=== PATIENT | male | born 1960 | race Caucasian/White ===

== ENCOUNTER 2023-02-28 01:15 | Day surgery (SDC) | payer BC, SELFPAY ==
[2023-02-18 10:24] VITALS: BMI 31.0
--- NOTE | 2023-02-27 15:27 | PM.HPGS ---
History of Present Illness History of Present Illness Consent: Risks, benefits, and alternatives have been discussed and questions answered. Patient agrees to proceed with procedure. Chief complaint: hx colon ca, hx colon polyps Narrative: Maxim Schumacher is a 62 year old male With history of colon cancer which has been resected. He also has a history of polyps. Five years ago he had 3 polyps removed. Review of Systems Review of Systems: All systems reviewed & are unremarkable except as noted in HPI and below PMFSH Past Medical History Medical History Adhesive capsulitis of right shoulder Degenerative arthritis of right shoulder region Right shoulder pain Family History Family History Father Hypertension Father Hypertension Patient's father is in good health Mother Patient's mother is in good health Sibling Patient's sister is in good health Patient's brother is in good health Other Family history of gout Family history of malignant neoplasm Social History Social History Smoking status: Never smoker Alcohol intake: never Substance use: never Substance use type: does not use Living arrangements: with family Spiritual care concerns: No Meds Home Medications and Allergies Home Medications Medication Instructions Recorded Confirmed Type levothyroxine 50 mcg tablet 50 mcg PO DAILY 02/18/23 02/28/23 History telmisartan 80 1 tablet PO DAILY 02/18/23 02/28/23 History mg-hydrochlorothiazide 25 mg tablet Allergies Allergy/AdvReac Type Severity Reaction Status Date / Time Penicillins Allergy Unknown Unknown Verified 02/28/23 07:52 Exam Const: General: alert Orientation/consciousness: patient oriented x3 Resp: Auscultation: clear to auscultation bilaterally Cardio: Rhythm: regular rhythm GI: GI Palp: Yes Soft to palpation and No Tenderness to palpation present (GI) Neuro: General: patient oriented x3 Assessment and Plan Assessment and plan (1) Colon cancer screening: Code(s): Z12.11 - Encounter for screening for malignant neoplasm of colon Status: Acute Assessment and Plan: Colonoscopy with possible biopsy or polypectomy or cautery or injection of substances. (2) History of colon cancer: Code(s): Z85.038 - Personal history of other malignant neoplasm of large intestine Status: Acute
[2023-02-28] VITALS (9 sets, daily range): BP systolic 132–175; BP diastolic 90–126; PULSE 62–72; RESP 13–20; TEMP 36.2; O2SAT 95–97; BMI 29.9
[2023-02-28] MEDS: LACTATED RINGERS 1,000 ML 150 ML IV CONT (08:10)
--- NOTE | 2023-02-28 08:44 | P.PNAN_ITS ---
Anes - Initial Pre Proc Eval Procedure: Operation Date: 02/28/23 09:00 Proposed Procedures p Colonoscopy - Pawel Horn MD Date/Time: 02/28/23 08:44 Surgeon: Pawel Horn MD Pre Op Diagnosis: hx colon ca, hx colon polyps Patient Data Age: 62 Gender: M Height: 1.73 m Weight: 89.4 kg Last Vital Signs Temp 36.2 C L 02/28/23 07:53 Pulse 71 02/28/23 07:53 Resp 20 02/28/23 07:53 BP 168/112 H 02/28/23 08:16 Pulse Ox 96 02/28/23 07:53 O2 Del Method Room Air 02/28/23 07:53 Allergies Allergy/AdvReac Type Severity Reaction Status Date / Time Penicillins Allergy Unknown Unknown Verified 02/28/23 07:52 Home Medications Medication Instructions Recorded Confirmed Type levothyroxine 50 mcg tablet 50 mcg PO DAILY 02/18/23 02/28/23 History telmisartan 80 1 tablet PO DAILY 02/18/23 02/28/23 History mg-hydrochlorothiazide 25 mg tablet Patient hx anesthesia problems: none Family hx anesthesia problems: none Results Review: All pre-operative results and documents have been reviewed as part of the pre- operative evaluation. [facility] Past Medical History Medical History Adhesive capsulitis of right shoulder Degenerative arthritis of right shoulder region Right shoulder pain Family History Family History Father Hypertension Father Hypertension Patient's father is in good health Mother Patient's mother is in good health Sibling Patient's sister is in good health Patient's brother is in good health Other Family history of gout Family history of malignant neoplasm Social History Social History Smoking status: Never smoker Alcohol intake: never Substance use: never Substance use type: does not use Living arrangements: with family Spiritual care concerns: No Anes - Eval Final PreProcedure Day of Procedure 02/28/23 08:44 Patient weight: obese Heart: regular rate and rhythm Lungs: clear to auscultation Airway: Mallampati scale class II Neurological: alert and oriented Last oral intake: >/= 8 hours ASA classification: III Emergent: no Anesthetic plan: proceed Anesthesia type and monitoring: general GIVS and standard monitoring Results Review: All pre-operative results and documents have been reviewed as part of the pre- operative evaluation. Informed Consent: The patient's anesthetic plan and its attendant risks and benefits were discussed with the patient/family/POA. Questions were solicited and answers provided to the satisfaction of the patient/family/POA.
--- NOTE | 2023-02-28 09:34 | SUR.PHASEII ---
Per Dr. Ogden patient can go home to take home meds if diastolic pressure is less less than or equal to 110.
--- NOTE | 2023-02-28 09:40 | SUR.PHASEII ---
Per Dr. Ogden give 5mg of hydralazine IV for bp of 173/117.
[2023-02-28] MEDS: hydrALAZINE HCL 20 MG/ML VIAL 5 MG IV PUSH (09:47)
--- NOTE | 2023-02-28 10:05 | SUR.PHASEII ---
per Dr. Ogden, patient can be discharged with bp of 175/108. Encourage patient to take bp med when he gets home as well.
== END 2023-02-28 10:18 | disposition home or self-care (01) ==
PROVIDERS: PCP Family Medicine; Visit Provider Internal Medicine Gastroenterology
PROC: 0DJD8ZZ Inspection of Lower Intestinal Tract, Via Natural or Artificial Opening Endoscopic (ICD-10-PCS; CPT 45378; principal; 2023-02-28 09:00)
DX: Z12.11 Encounter for screening for malignant neoplasm of colon (principal); D12.2 Benign neoplasm of ascending colon; K57.30 Diverticulosis of large intestine without perforation or abscess without bleeding; Z85.038 Personal history of other malignant neoplasm of large intestine; Z98.0 Intestinal bypass and anastomosis status; Z90.49 Acquired absence of other specified parts of digestive tract; Z86.010 Personal history of colon polyps; E66.9 Obesity, unspecified; Z68.30 Body mass index [BMI] 30.0-30.9, adult
CPT/HCPCS: 45381; 45385; 88305; J0360; J2704; J7120

== ENCOUNTER 2023-04-11 09:47 | Outpatient (CLI) | payer BC, SELFPAY ==
--- NOTE | 2023-04-11 10:47 | ECG_ITS ---
Measurements Intervals [place] Rate: 62 P: 37 WA: 179 QRS: -12 QRSD: 122 T: 67 QT: 406 QTc: 413 Interpretive Statements SINUS RHYTHM NONSPECIFIC T-WAVE ABNORMALITY BORDERLINE ECG NO PREVIOUS ECG AVAILABLE FOR COMPARISON Electronically Signed On 04-11-2023 15:11:38 CDT by Marko Christianson M.D.
[2023-04-11 11:14] LABS: Hematocrit 41.5 % (42.0-52.0); Hemoglobin 13.2 g/dL (14.0-18.0)
[2023-04-11 11:19] LABS: Anion Gap 7 mmol/L (8-16); Blood Urea Nitrogen 22 mg/dL (9-20); Calcium 9.3 mg/dL (8.4-10.2); Carbon Dioxide 29 mmol/L (22-30); Chloride 103 mmol/L (98-107); Estimated Glomerular Filt Rate 48; Glucose 93 mg/dL (65-110); Potassium 4.2 mmol/L (3.4-5.0); Sodium 139 mmol/L (137-145)
== END 2023-04-11 09:48 | disposition home or self-care (01) ==
LOC: ANHSURGERY 09:52
PROVIDERS: Anesthesiology; PCP Family Medicine; Visit Provider Surgery
DX: K63.89 Other specified diseases of intestine (principal); I10 Essential (primary) hypertension; R94.31 Abnormal electrocardiogram [ECG] [EKG]
CPT/HCPCS: 36415; 80048; 85014; 85018; 93005

== ENCOUNTER 2023-04-25 12:33 | Inpatient (IN) | payer BC, SELFPAY ==
[2023-04-11 10:22] VITALS: BMI 29.0
[2023-04-11 10:23] VITALS: BP 154/108; PULSE 71; RESP 18; TEMP 36.6; O2SAT 99
--- NOTE | 2023-04-11 10:25 | PC.NURSE ---
Report to the Outpatient Waiting Room, entrance under the green pavilion located off [facility], at time __0600 on date _04/25/23 . Planned Procedure Time: __0730 . Time changes happen often and if your time is changed the preop area will call you the afternoon before. - You and your visitor will be asked to self-screen and do not enter if you have any COVID symptoms. - A mask is optional within the hospital at this time. Patients may have clear liquids (water, carbonated beverages, clear teas, apple juice) until 3 hours prior to surgery with a maximum of 20 ounces. - No food from midnight until time of surgery - Infants may have breast milk until 4 hours before surgery, formula 6 hours prior to surgery. - Children will be allowed to drink immediately following surgery. If applicable, please bring a bottle or sippy cup to assist with drinking. Juice, water, soda, and popsicles are readily available. For infants on formula, please bring formula the day of surgery. Pacifiers are allowed. Take the following medications with a SIP of water the morning of surgery: ___LEVOTHYROXINE DO NOT STOP ANY OF YOUR OTHER PRESCRIPTION MEDICATIONS PRIOR TO SURGERY ?EXCEPT THE FOLLOWING Medications to discontinue per physician ALL VITAMINS AND SUPPLEMENTS 3 DAYS PRE OP.LAST DOSE 04/21/23 HIBICLENS SHOWER DAY BEFORE SURGERY AND MORNING OF SURGERY BOWEL PREP PER DR SMITH ENSURE BUNDLE PACK PER DR SMITH Please no make-up, nail danish, hairspray, perfume, deodorant, or body powder the day of surgery. No jewelry (including any body piercings) or valuables the day of surgery, leave them at home. Please take a shower or bath the night before, or the morning of, surgery with an antibacterial soap. Wear comfortable, loose fitting clothing. Children are encouraged to wear pajamas. - Jewelry must be removed prior to entering the operating room. Rings and piercings that are not removed may be cut off. - The hospital will not accept responsibility for valuables. - Please leave all valuables, including medications, at home the day of surgery. If you are going home after surgery, a licensed canal driver must drive you home. - NO public transportation without another adult if you receive anesthesia. - We recommend that an adult stay with you for 24 hours following discharge. - We also recommend that you do not drive, make important decision, drink alcoholic beverages, or take any drugs that were not prescribed by your health care provider for at least 24 hours after your discharge time. For Pediatric surgeries, we recommend two adults accompany the child home. Follow any additional instructions given to you from your surgeon. If you or anyone in your household have experienced Covid symptoms in the past week, please notify your surgeon or the nurse liaison at the phone number below for possible testing. VERBAL AND WRITTEN instructions given to _PATIENT AND WESLEY and asked if any additional questions and then verbalized understanding. Patient advised to call surgeon office or pre surgery nurse liaison [phone] if any additional questions.
--- NOTE | 2023-04-24 14:53 | WPDANESEPPF ---
Anes - Initial Pre Proc Eval Procedure: Operation Date: 04/25/23 07:30 Proposed Procedures p Hand Assisted Laparoscopic Right Hemicolectomy - Wilman Raygoza MD Date/Time: 04/24/23 14:53 Surgeon: Wilman Raygoza MD Pre Op Diagnosis: hx colon ca,colon polyps with dysplasia, sigmod co Patient Data Age: 62 Gender: M Height: 1.78 m Weight: 91.6 kg Last Vital Signs Temp 97.8 F 04/11/23 10: Pulse 71 04/11/23 10:23 Resp 18 04/11/23 10:23 BP 154/108 H 04/11/23 10:23 Pulse Ox 99 04/11/23 10:23 O2 Del Method Room Air 04/11/23 10:23 Allergies Allergy/AdvReac Type Severity Reaction Status Date / Time Penicillins Allergy Unknown Rash Verified 04/25/23 06:19 Home Medications Medication Instructions Recorded Confirmed Type levothyroxine 50 mcg tablet 50 mcg PO DAILY 02/18/23 04/25/23 History telmisartan 80 1 tablet PO QNOON 02/18/23 04/25/23 History mg-hydrochlorothiazide 25 mg tablet ciprofloxacin HCl 500 mg tablet 500 mg PO .COMPLEX #1 tablet 03/21/23 04/11/23 Rx metronidazole 500 mg tablet 500 mg PO .COMPLEX #3 tabs 03/21/23 04/11/23 Rx milk thistle 200 mg capsule 200 mg PO DAILY 04/11/23 04/25/23 History Patient hx anesthesia problems: none Family hx anesthesia problems: none Results Review: All pre-operative results and documents have been reviewed as part of the pre-operative evaluation. [facility] Past Medical History Medical History (Updated 03/20/23 @ 15:19 by Heather Negro CMA) Adhesive capsulitis of right shoulder Degenerative arthritis of right shoulder region GERD (gastroesophageal reflux disease) History of colon cancer Hypertension Hypothyroid Right shoulder pain Surgical History Surgical History History of colon surgery Hx of neck surgery Family History Family History Father Hypertension Father Hypertension Patient's father is in good health Mother Patient's mother is in good health Sibling Patient's sister is in good health Patient's brother is in good health Other Family history of gout Family history of malignant neoplasm Social History Social History Smoking status: Never smoker Alcohol intake: never Substance use: never Substance use type: does not use Living arrangements: with family Occupation/Education: occupation 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 Informed Consent: The patient's anesthetic plan and its attendant risks and benefits were discussed with the patient/family/POA. Questions were solicited and answers provided to the satisfaction of the patient/family/POA.
[2023-04-25] VITALS (13 sets, daily range): BP systolic 115–161; BP diastolic 64–103; PULSE 55–79; RESP 9–28; TEMP 36.4–37.8; O2SAT 92–100
[2023-04-25] MEDS: LACTATED RINGERS 1,000 ML 30 ML IV CONT ×2 (06:30→11:10)
[2023-04-25] MEDS: ACETAMINOPHEN 500 MG TABLET 1000 MG PO (07:02)
[2023-04-25] MEDS: ALVIMOPAN 12 MG CAPSULE PO (07:03)
[2023-04-25] MEDS: KETOROLAC 15 MG/ML VIAL (*BKC) IV PUSH ×2 (07:06→10:31)
--- NOTE | 2023-04-25 07:22 | PM.IMHP ---
H&P: [facility] History of Present Illness Date/Time: 04/25/23 07:22 Chief Complaint: Right colon polyp with dysplasia Narrative: General Laparoscopic Surgical [address] [place] [address] Wilman Raygoza M.D. General Surgery Office Visit Re [facility] HPI Comments Details: Maxim is a 62 y/o male who presents to the office accompanied by his at the request of Dr. Horn for evaluation of a colon mass. Patient recent underwent colonoscopy with Dr. Horn on 02/28/23. 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 Patient has a past history of colon cancer as well as a previous colon resection in 2011. Patient denies any abdominal pain, change in bowel habits, or bleeding. Review of Systems Review of Systems: The remainder of the review of systems to include constitutional, HEENT, cardiovascular, respiratory, GI, , integumentary, musculoskeletal, endocrine, immunologic, hematologic, psychiatric, and neurologic are all negative except for which is mentioned above in the HPI. [facility] Past Medical History Medical History Adhesive capsulitis of right shoulder Degenerative arthritis of right shoulder region GERD (gastroesophageal reflux disease) History of colon cancer Hypertension Hypothyroid Right shoulder pain Surgical History Surgical History History of colon surgery Hx of neck surgery Family History Family History Father Hypertension Father Hypertension Patient's father is in good health Mother Patient's mother is in good health Sibling Patient's sister is in good health Patient's brother is in good health Other Family history of gout Family history of malignant neoplasm Social History Social History Smoking status: Never smoker Alcohol intake: never Substance use: never Substance use type: does not use Living arrangements: with family Occupation/Education: occupation 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[employer] care concerns: No Meds Home Medications and Allergies Home Medications Medication Instructions Recorded Confirmed Type levothyroxine 50 mcg tablet 50 mcg PO DAILY 02/18/23 04/25/23 History telmisartan 80 1 tablet PO QNOON 02/18/23 04/25/23 History mg-hydrochlorothiazide 25 mg tablet ciprofloxacin HCl 500 mg tablet 500 mg PO .COMPLEX #1 tablet 03/21/23 04/11/23 Rx metronidazole 500 mg tablet 500 mg PO .COMPLEX #3 tabs 03/21/23 04/11/23 Rx milk thistle 200 mg capsule 200 mg PO DAILY 04/11/23 04/25/23 History Allergies Allergy/AdvReac Type Severity Reaction Status Date / Time Penicillins Allergy Unknown Rash Verified 04/25/23 06:19 Exam Const: General: comfortable and no acute distress HENMT: Ears: TM's normal bilaterally Face/Nose/Sinus: Normal nares present Mouth: Yes moist mucous membranes Eyes: General: appearance normal, both eyes and all related structures Sclera: sclerae normal Pupils: Equal, round and reactive pupils present Neck: Neck: supple and no JVD Resp: Effort & Inspection: normal respiratory effort Auscultation: clear to auscultation bilaterally Cardio: Rate: regular rate Rhythm: regular rhythm GI: GI Palp: Yes Soft to palpation, No Firmness to palpation present (GI), No Tenderness to palpation present (GI), No Guarding due to palpation present (GI) and No Hernia present Other: Well healed midline scar, no incisional hernias Skin: General skin exam: normal color and no rashes or lesions noted Neuro: General: gait normal Speech: normal speech Motor exam (neuro): 5/5 motor strength present throughout Sensory Exam: normal sensation Extrem: General: normal to inspection Psych: Mental Status:
--- NOTE | 2023-04-25 07:25 | WPDHPUPDATE1 ---
History and Physical Update Update Date/Time: 04/25/23 07:25 History and Physical has been reviewed, including an updated exam of the patient. There are NO changes in the patient's condition. Risks, benefits, and alternatives have been discussed and questions answered. Patient agrees to proceed with procedure.
[2023-04-25] MEDS: ceFAZolin 2 GM/D5W 50 ML 2 GM/50 ML BAG IVPB (07:34)
[2023-04-25] MEDS: LIDO 1%/EPINEPHRINE 1:100,000 50 ML VIAL 30 ML INFILTRATE (07:46)
[2023-04-25] MEDS: metroNIDAZOLE 500 MG/ISO 100ML 500 MG/100 ML BAG 100 MG IVPB (07:52)
[2023-04-25] MEDS: ceFAZolin SODIUM 1 GM VIAL IV PUSH (10:35)
--- NOTE | 2023-04-25 12:21 | ADMGEN ---
This patient, Maxim Schumacher, was admitted to -. Patient/family oriented to hospital policies and general routines including ID bracelet, bed and alarms, visiting hours, pain management, procedures, bathroom and other care routines, personal items, smoking policy, room service/diet, and visiting hours. Information on how to activate the Rapid Response Team has been discussed. Patient/Family are encouraged to report perceived risks to care and to ask questions if they do not understand what they are told or what they should do.
--- NOTE | 2023-04-25 13:13 | W.PM.PROC2 ---
Procedure Note - Detailed Date of Procedure 04/25/23 Pre-op Diagnosis hx colon ca,colon polyps with dysplasia, sigmod co Post-op Diagnosis Same Procedure Performed Hand assisted laparoscopic right hemicolectomy with stapled [id number] ileocolic anastomosis Surgeon Wilman Raygoza MD Dispatcher Chief [employer]az MAI Anesthesia General Indications Patient is a 62-year-old gentleman who in 2012 had a low anterior resection for a colorectal cancer. He recently had a colonoscopy and was found to have a right colonic polyp which was biopsied and showed high-grade dysplasia. Presents now for a hand assisted laparoscopic right hemicolectomy to resect the pre cancerous polyp. Findings The polyp was located in the proximal ascending colon just distal to the cecum. It was well marked with the Carlota ink tattoo that was placed at the patient's colonoscopy. There were some adhesions of omentum and small bowel to the anterior abdominal wall which were carefully taken down with sharp scissor electrocautery dissection. A small periumbilical midline incisional hernia was noted with some incarcerated omentum. Description of Procedure After informed consent was obtained patient brought to the operating room was placed supine position and general endotracheal anesthesia was administered. A Hickey catheter was placed decompress the bladder and a nasogastric tube placed to decompress the stomach. The abdomen was then prepped and draped usual sterile fashion. A time-out was then performed correctly identifying the patient as well as procedure to be performed. He was given Ancef for perioperative IV antibiotics. I 1st started by making a small stab incision left upper quadrant and then utilizing a 5mm Optiview port into the abdomen with a direct optical insertion. Once inside the abdomen insufflated to adequate pneumoperitoneum of 15mmHg of CO2. Upon examining the abdomen there were 2 loops of small bowel which were adherent to the anterior abdominal wall just inferior to the umbilicus. There were also adhesions of the omentum to the epigastric abdominal wall. Two small incisional hernias were noted in the midline scar in the periumbilical region. Omentum was incarcerated within these small hernia defects each measuring about 1 to 2 cm diameter. I then placed additional trocar ports of left lateral abdominal wall to include 2 more 5mm trocar ports and a 12mm trocar port all under direct visualization. Working through these ports I then very carefully performed adhesiolysis of the omentum off of the anterior abdominal wall as well as the adherent small bowel off of the anterior abdominal wall. This is down with a combination of LigaSure and sharp scissor laparoscopic dissection. No injury to the bowel was seen with takedown of these adhesions. These lysis took about 30minutes. I then proceeded to place a GelPort for hand access to had all the adhesions down. An 8cm supraumbilical incision the midline and dissection was carried down through the subcutaneous tissue electrocautery. This is centered on 1 of the small incisional hernias and I entered through the hernia sac. I then opened the fascia to match the skin incision and then placed the GelPort for hand access. I then placed my hand into the abdomen and then utilizing the remaining trocar port sites and the LigaSure energy device proceeded to mobilize the right colon. I 1st started by reflecting the omentum to the upper portion of the abdomen and pushing the small bowel to the pelvis and to the left side of the abdomen. The hepatocolic ligament was then divided utilizing the LigaSure device allowing me to reflect the hepatic flexure of the colon towards the midline. The duodenum was identified and preserved without injury. I continued my dissection proximally on the right ascending colon dividing the right lateral peritoneal attachments to the ascending colon with the LigaSure device. Once I reached the cecum and
[2023-04-25] MEDS: ceFAZolin 1 GM/NS 50 ML 1 GM/50 ML BAG IVPB ×2 (13:24→23:01)
[2023-04-25] MEDS: TELMISARTAN 40 MG TABLET 80 MG PO (13:25)
[2023-04-25] MEDS: hydroCHLOROthiazide 25 MG TABLET PO (13:25)
[2023-04-25] MEDS: DEXTROSE 5%/LACTATED RINGERS 1,000 ML 100 ML IV CONT (13:25)
[2023-04-25 13:47] LABS: Basophils Percent Auto 0.1 % (0.2-1.2); Eosinophils Percent Auto 0.1 % (0-4.4); Hematocrit 37.8 % (42.0-52.0); Hemoglobin 12.1 g/dL (14.0-18.0); Immature Granulocyte Absolute 0.08 K/mm3 (0.00-0.031); Immature Granulocyte Percent A 0.5 % (0-0.5); Lymphocytes Absolute Auto 0.63 K/mm3 (0.9-3.2); Lymphocytes Percent Auto 3.8 % (18.3-44.2); Mean Corpuscular Hemoglobin 30.5 pg (26-34); Mean Corpuscular Volume 95.2 fl (80-100); Mean Platelet Volume 9.7 fl (7.4-10.4); Monocytes Absolute Auto 0.4 K/mm3 (0.1-0.6); Monocytes Percent Auto 2.6 % (2.6-8.5); Neutrophils Absolute Auto 15.5 K/mm3 (1.3-6.7); Neutrophils Percent Auto 92.9 % (45.5-73.1); Platelet Count Result 382 k/mm3 (150-375); Red Blood Count 3.97 M/mm3 (4.6-6.20); Red Cell Distribution Width 13.9 % (11.5-14.5); White Blood Count 16.7 K/mm3 (4.5-10.0)
[2023-04-25] MEDS: ENOXAPARIN 40 MG/0.4 ML SYRINGE SUB-Q (14:33)
[2023-04-26 01:00] VITALS: TEMP 36.9
[2023-04-26 04:00] VITALS: BP 137/81; PULSE 62; RESP 16; TEMP 37.6; O2SAT 96
[2023-04-26] MEDS: LEVOTHYROXINE SODIUM 50 MCG TABLET PO (05:40)
[2023-04-26 07:46] VITALS: BP 130/83; PULSE 56; RESP 18; TEMP 37.1; O2SAT 100
[2023-04-26] MEDS: ENOXAPARIN 40 MG/0.4 ML SYRINGE SUB-Q (08:06)
[2023-04-26 08:12] LABS: Hematocrit 32.8 % (42.0-52.0); Hemoglobin 10.8 g/dL (14.0-18.0); Mean Corpuscular HGB Conc 32.9 g/dl (32-36); Mean Corpuscular Hemoglobin 30.5 pg (26-34); Mean Corpuscular Volume 92.7 fl (80-100); Mean Platelet Volume 10.4 fl (7.4-10.4); Platelet Count Result 346 k/mm3 (150-375); Red Blood Count 3.54 M/mm3 (4.6-6.20); Red Cell Distribution Width 13.9 % (11.5-14.5); White Blood Count 19.7 K/mm3 (4.5-10.0)
[2023-04-26] MEDS: ACETAMINOPHEN 500 MG TABLET 1000 MG PO (08:16)
[2023-04-26 08:26] LABS: Anion Gap 10 mmol/L (8-16); Blood Urea Nitrogen 20 mg/dL (9-20); Calcium 8.2 mg/dL (8.4-10.2); Carbon Dioxide 23 mmol/L (22-30); Chloride 96 mmol/L (98-107); Estimated CRCL calculation 43 ml/min; Estimated Glomerular Filt Rate 41; Glucose 96 mg/dL (65-110); Potassium 3.2 mmol/L (3.4-5.0); Sodium 129 mmol/L (137-145)
[2023-04-26] MEDS: TELMISARTAN 40 MG TABLET 80 MG PO (11:11)
[2023-04-26] MEDS: hydroCHLOROthiazide 25 MG TABLET PO (11:11)
[2023-04-26 12:00] VITALS: BP 148/81; PULSE 57; RESP 20; TEMP 37.2; O2SAT 100
--- NOTE | 2023-04-26 12:42 | WPDANESPN ---
Anes - Prog Note Post-Op Date/Time: 04/26/23 12:42 Cardiovascular status: normal Respiratory status: normal Airway patency: baseline Mental status: baseline Post-Op hydration status: normal Vital Signs: Last Vital Signs Temp 37.2 C 04/26/23 12:00 Pulse 57 L 04/26/23 12:00 Resp 20 04/26/23 12:00 BP 148/81 H 04/26/23 12:00 Pulse Ox 100 04/26/23 12:00 O2 Del Method Room Air 04/26/23 08:00 O2 Flow Rate 8 04/25/23 11:25 Pain Score (VAS): 07/26 I/O: Intake & Output 04/25/23 04/26/23 04/26/23 23:59 07:59 15:59 Intake Total 1290 3000 472 Output Total 100 950 Balance 1190 2050 472 Laboratory Tests 04/26/23 06:34 04/26/23 06:34 04/25/23 04/26/23 13:35 06:34 WBC 16.7 H 19.7 H RBC 3.97 L 3.54 L Hgb 12.1 L 10.8 L Hct 37.8 L 32.8 L MCV 95.2 92.7 MCH 30.5 30.5 MCHC 32.0 32.9 RDW 13.9 13.9 Plt Count 382 H 346 MPV 9.7 10.4 Immature Gran % (Auto) 0.5 Neut % (Auto) 92.9 H Lymph % (Auto) 3.8 L [place] % (Auto) 2.6 Eos % (Auto) 0.1 Baso % (Auto) 0.1 L Lymph # (Auto) 0.63 L [place] # (Auto) 0.4 Eos # (Auto) 0.0 Baso # (Auto) 0.0 Abs Immat Gran (auto) 0.08 H Absolute Neuts (auto) 15.5 H Absolute Nucleated RBC 0.0 Nucleated RBC % 0.0 Sodium 129 L Potassium 3.2 L Chloride 96 L Carbon Dioxide 23 Anion Gap 10 BUN 20 Creatinine 1.70 H Estim Creat Clear Calc 43 Estimated GFR 41 L Glucose 96 Calcium 8.2 L Post-procedural complaints: none Patient Feedback: Patient satisfied with anesthetic care.
--- NOTE | 2023-04-26 12:50 | PM.DS ---
DS: Admitting Diagnosis Discharge Date 04/26/2023 Admitting Diagnosis Ascending colon polyp with dysplasia DS: Discharge Diagnosis Discharge Diagnosis (1) Dysplasia-associated lesion or mass (DALM) of colon: Code(s): K63.9 - Disease of intestine, unspecified Status: Acute (2) Incisional hernia: Qualifiers: Obstruction and gangrene presence: without obstruction or gangrene Qualified Code(s): K43.2 - Incisional hernia without obstruction or gangrene Code(s): K43.2 - Incisional hernia without obstruction or gangrene Status: Acute (3) History of colon cancer: Code(s): Z85.038 - Personal history of other malignant neoplasm of large intestine Status: Acute DS: Summary Hospital Course Reason for hospitalization: Ascending colon polyp with dysplasia Hospital Course: This is a 62-year-old man who had recently presented with a large polyp in the ascending colon identified on colonoscopy. He had undergone colonoscopy by Dr. Horn on 02/28/2023. This showed evidence of a large polyp in the ascending colon and biopsies confirmed tubular adenoma with high-grade dysplasia. Patient then presented on 04/25/2023 for hand assisted laparoscopic right hemicolectomy by Dr. Raygoza. Surgery was uncomplicated and he was admitted to the surgical floor postoperatively. He was started on clear liquids and diet and activity were advanced as tolerated. On postop day 1 he was advanced to a full liquid diet for breakfast and a soft regular diet for lunch. His pain was well controlled and he was ambulating without much difficulty. He had a bowel movement on postop day 1. He tolerated his regular lunch and was remaining hemodynamically stable. He was discharged on 04/26/2023. Pathology is still pending at time of discharge. Status at Discharge Functional status at discharge: independent ambulation Overall status at discharge: patient is progressing back to baseline Time Spent with Patient Time attestation: Total time spent providing and/or coordinating discharge services: Time spent: Less than 30 minutes Exam Const: General: comfortable, no acute distress and alert Orientation/consciousness: patient oriented x3 Resp: Effort & Inspection: normal respiratory effort Auscultation: clear to auscultation bilaterally Cardio: Rate: regular rate Rhythm: regular rhythm GI: Inspection: non-distended and incision (Scant area of bloody drainage at inferior edge of incision) GI Palp: Yes Soft to palpation, Yes Tenderness to palpation present (GI) (Incisional) and No Guarding due to palpation present (GI) Auscultation: normal bowel sounds DS: Data Data Completed and Pending Pending studies at discharge: Pending at discharge 04/25/23 09:59 Surgical [PTH] Routine Labs on day of discharge: Labs from last 24 hours 04/26/23 04/25/23 06:34 13:35 WBC 19.7 H 16.7 H RBC 3.54 L 3.97 L Hgb 10.8 L 12.1 L Hct 32.8 L 37.8 L MCV 92.7 95.2 MCH 30.5 30.5 MCHC 32.9 32.0 RDW 13.9 13.9 Plt Count 346 382 H MPV 10.4 9.7 Immature Gran % (Auto) 0.5 Neut % (Auto) 92.9 H Lymph % (Auto) 3.8 L Kerr % (Auto) 2.6 Eos % (Auto) 0.1 Baso % (Auto) 0.1 L Lymph # (Auto) 0.63 L Kerr # (Auto) 0.4 Eos # (Auto) 0.0 Baso # (Auto) 0.0 Abs Immat Gran (auto) 0.08 H Absolute Neuts (auto) 15.5 H Absolute Nucleated RBC 0.0 Nucleated RBC % 0.0 Sodium 129 L Potassium 3.2 L Chloride 96 L Carbon Dioxide 23 Anion Gap 10 BUN 20 Creatinine 1.70 H Estim Creat Clear Calc 43 Estimated GFR 41 L Glucose 96 Calcium 8.2 L Discharge Plan Discharge Attending physician on discharge: Wilman Raygoza Discharging Clinician: Maxim Horner Patient Disposition: Home, Self-Care Activity: may shower Diet: regular Wound Care Instructions: other - see discharge instructions Discharge Instructions: May discharge home when stable. Follow-up in t
== END 2023-04-26 14:15 | disposition home or self-care (01) | DRG 330 ==
LOC: ANH3MEDSUR 12:34
PROVIDERS: Admitting Provider Surgery; PCP Family Medicine; Visit Provider Surgery
PROC: 0DTF4ZZ Resection of Right Large Intestine, Percutaneous Endoscopic Approach (ICD-10-PCS; CPT 44204; principal; 2023-04-25 07:30)
DX: D12.2 Benign neoplasm of ascending colon (principal); K43.0 Incisional hernia with obstruction, without gangrene; K21.9 Gastro-esophageal reflux disease without esophagitis; E03.9 Hypothyroidism, unspecified; I10 Essential (primary) hypertension; M19.011 Primary osteoarthritis, right shoulder; M75.01 Adhesive capsulitis of right shoulder; Z85.038 Personal history of other malignant neoplasm of large intestine
CPT/HCPCS: 36415; 80048; 85025; 85027; 86850; 86900; 86901; 88307; A9270; J0690; J1100; J1170; J1650; J1836; J1885; J2250; J2371; J2405; J2704; J3010; J7030; J7120; J7121

== ENCOUNTER 2023-06-07 18:48 | Emergency (ER) | payer BC, SELFPAY ==
--- NOTE | ~2023-06-07 | CT_ITS ---
EXAMINATION: CTA chest PE abdomen pel DATE: 06/08/2023 02:43 INDICATION: Pleuritic chest pain, epigastric abdominal pain TECHNIQUE: Computed tomography angiography (CTA) of the chest, abdomen and pelvis was performed with 100 mL Omnipaque-350 intravenous contrast timed to evaluate the pulmonary arteries. Coronal maximum i ntensity projection 3D-reconstructions were created by the technologist. Automated exposure control a nd iterative reconstruction technique were employed. Exam dose: 1120.51 mGy-cm total exam DLP. COMPARISON: 06/07/2023 PA and lateral chest 08/15/2011 CT abdomen pelvis FINDINGS: 4.1 cm ascending aortic aneurysm. Type B aortic dissection, beginning at the left subclavian artery continuing into the upper abdomen a nahid the origins of the celiac and superior mesenteric arteries. No central or segmental pulmonary artery embolism is noted. The peripheral pulmonary arteries are not optimally demonstrated. No hilar or mediastinal mass lesion or lymphadenopathy is detected. Cardiomegaly. Trace pericardial fluid. Small likely benign right greater fissural lymph node. No pulmonary infiltrate or consolidation or pu lmonary mass lesion is noted. There are multiple small stones in the dependent aspect of the gallbladder. No gallbladder wall thick ening or pericholecystic fluid or fat stranding. No bile duct or pancreatic duct dilatation. No hepatic or pancreatic space-occupying mass lesion or pancreatic calcification. The spleen is surgically absent. Normal morphology of the adrenal glands. No renal mass lesion is evident. Approximately 6.5 mm nonobstructing lower pole left renal calculus. No hydronephrosis. Severe degenerative disc disease at C6-7. Diffuse idiopathic skeletal hyperostosis is noted in the lo wer thoracic spine. Infrarenal abdominal aortic aneurysm measuring approximately 3 cm maximal dimension. No intraperitoneal or retroperitoneal or pelvic mass lesion or adenopathy or ascites. Suture lines in the right colon and distal sigmoid colon. Multiple diverticula of the sigmoid colon; a lesser extent descending colon; no evidence of diverticulitis. No bowel obstruction or intraperiton eal free air is detected. Moderate prostate enlargement. The urinary bladder is unremarkable. Diffuse idiopathic skeletal hyperostosis of the thoracic spine. No suspicious osteolytic or osteoblas tic lesions are noted. IMPRESSION: 4.1 cm ascending aortic aneurysm Type B thoracic aortic dissection 3 cm abdominal aortic aneurysm Cardiomegaly Cholelithiasis Postoperative changes of the sigmoid and right colon Diverticulosis of the left colon Status post splenectomy Nonobstructive left nephrolithiasis Reviewed, dictated and finalized at [facility]. Reviewed, dictated and finalized at location [facility]. E COACH
--- NOTE | ~2023-06-07 | XR_ITS ---
EXAMINATION: XR chest 2V 06/07/2023 19:25 INDICATION: Chest pain PROCEDURE: 2 view chest COMPARISON: 05/31/2014 FINDINGS: The lungs are clear. The cardiomediastinal silhouette is within normal limits. There are no pleural effusions. There is no pneumothorax suspected. IMPRESSION: 1: NO ACUTE CARDIOPULMONARY DISEASE. Reviewed, dictated and finalized at [facility]. CHARRER
--- NOTE | 2023-06-07 18:49 | ECG_ITS ---
Measurements Intervals [place] Rate: 57 P: 29 MD: 178 QRS: -2 QRSD: 108 T: 54 QT: 449 QTc: 439 Interpretive Statements SINUS BRADYCARDIA COMPARED TO ECG 04/11/2023 11:01:06 SINUS BRADYCARDIA NOW PRESENT Electronically Signed On 06-07-2023 19:56:01 TICKETING AGENT by Marilee Sneed M.D.
[2023-06-07 19:05] VITALS: BP 193/94; PULSE 67; RESP 20; TEMP 36.2; O2SAT 99
[2023-06-07 19:09] LABS: Hematocrit 39.6 % (42.0-52.0); Hemoglobin 12.5 g/dL (14.0-18.0); Mean Corpuscular HGB Conc 31.6 g/dl (32-36); Mean Corpuscular Hemoglobin 29.9 pg (26-34); Mean Corpuscular Volume 94.7 fl (80-100); Mean Platelet Volume 9.7 fl (7.4-10.4); Platelet Count Result 313 k/mm3 (150-375); Red Blood Count 4.18 M/mm3 (4.6-6.20); Red Cell Distribution Width 14.2 % (11.5-14.5)
[2023-06-07 19:19] LABS: INR 0.9; Prothrombin Time 12.9 Seconds (11.1-14.7)
[2023-06-07 19:20] LABS: Partial Thromboplastin Time 26.1 SECONDS (22.3-36.8)
[2023-06-07 19:31] LABS: Alanine Aminotransferase 26 U/L (6-50); Albumin Level 4.4 g/dL (3.5-5.1); Alkaline Phosphatase 71 U/L (38-126); Anion Gap 12 mmol/L (8-16); Aspartate Amino Transferase 37 U/L (17-59); Bilirubin,Total 0.7 mg/dL (0.2-1.3); Blood Urea Nitrogen 21 mg/dL (9-20); Calcium 9.2 mg/dL (8.4-10.2); Carbon Dioxide 27 mmol/L (22-30); Chloride 100 mmol/L (98-107); Estimated CRCL calculation 48 ml/min; Estimated Glomerular Filt Rate 47; Glucose 133 mg/dL (65-110); Lipase 107 U/L (23-300); Potassium 3.5 mmol/L (3.4-5.0); Sodium 139 mmol/L (137-145)
[2023-06-07 19:33] LABS: Band Neutrophils Percent 3 % (0-6); Hypochromasia 1+ (NORMAL); Lymphocytes Absolute Manual 0.42 K/mm3 (1.1-4.5); Monocytes Absolute Manual 0.14 K/mm3 (0.1-0.90); Monocytes Percent Manual 1 % (3-9); Neutrophils Absolute Manual 13.44 K/mm3 (1.3-6.7); Neutrophils Percent Manual 93 % (46-73); Platelet Estimate Adequate (Adequate); Schistocytes None Seen (NORMAL); Total Cells Counted 100
[2023-06-07 19:43] LABS: Troponin I < 0.012 ng/mL (0.000-0.034)
[2023-06-07 21:33] VITALS: BP 214/95; PULSE 90; RESP 18
[2023-06-07 23:43] VITALS: PULSE 92; O2SAT 96
--- NOTE | 2023-06-07 23:52 | ED.CHESTPAIN ---
HPI - Chest Pain General Chief Complaint: Chest Pain <HARMONY Gerber Last Filed: 06/08/23 05:19> Stated Complaint: chest pain <HARMONY Gerber Last Filed: 06/08/23 05:19> Time Seen by Provider: 06/07/23 23:39 <HARMONY Gerber Last Filed: 06/08/23 05:19> Source: patient <HARMONY Gerber Last Filed: 06/08/23 05:19> Mode of arrival: ambulatory <HARMONY Gerber Last Filed: 06/08/23 05:19> Limitations: no limitations <HARMONY Gerber Last Filed: 06/08/23 05:19> History of Present Illness HPI narrative: This is a 63 year old male that presents to the ER for epigastric pain. Ongoing over the last several hours. Started after eating chili. Reports the pain is a pressure. Associated with nausea and vomiting. Worse with deep breathing. He tried taking a gas medication with little relief. The pain is now starting to subside some. Reports a normal BM today. Reports a recent hemicolectomy. Denies fever or lower extremity edema. <HARMONY Gerber Last Filed: 06/08/23 05:19> Related Data Home Medications: Home Medications Medication Instructions Recorded Confirmed levothyroxine 50 mcg tablet 50 mcg PO DAILY 02/18/23 05/06/23 telmisartan 80 1 tablet PO QNOON 02/18/23 05/06/23 mg-hydrochlorothiazide 25 mg tablet milk thistle 200 mg capsule 200 mg PO DAILY 04/11/23 05/06/23 <HARMONY Gerber Last Filed: 06/08/23 05:19> Allergies/Adverse Reactions: Allergies Allergy/AdvReac Type Severity Reaction Status Date / Time Penicillins Allergy Unknown Rash Verified 04/25/23 06:19 <HARMONY Gerber Last Filed: 06/08/23 05:19> Review of Systems Review of Systems: CONSTITUTIONAL: Denies fever CARDIOVASCULAR: Reports chest pain. Denies edema. RESPIRATORY: Denies dyspnea. GASTROINTESTINAL: Reports abdominal pain, nausea, vomiting <Sara Donovan PA-C - Last Filed: 06/08/23 05:19> All systems reviewed & are unremarkable except as noted in HPI and below <Sara Donovan PA-C - Last Filed: 06/08/23 05:19> [facility] Past Medical History Medical History: Medical History Adhesive capsulitis of right shoulder Degenerative arthritis of right shoulder region GERD (gastroesophageal reflux disease) History of colon cancer Hypertension Hypothyroid Right shoulder pain <Sara Donovan PA-C - Last Filed: 06/08/23 05:19> Surgical History Surgical History: Surgical History (Updated 05/06/23 @ 11:01 by Pina Delgadillo MA) History of colon surgery History of hemicolectomy Hand assisted laparoscopic right hemicolectomy with stapled [id number] ileocolic anastomosis on 04/25/23 SAW Hx of neck surgery <Sara Donovan PA-C - Last Filed: 06/08/23 05:19> Family History Family History: Family History Father Hypertension Father Hypertension Patient's father is in good health Mother Patient's mother is in good health Sibling Patient's sister is in good health Patient's brother is in good health Other Family history of gout Family history of malignant neoplasm <Sara Donovan PA-C - Last Filed: 06/08/23 05:19> Social History Social History: Social History Smoking status: Never smoker Alcohol intake: never Substance use: never Substance use type: does not use Lack of Transportation: No Lack of Food: Never True Current Housing: I Have Housing Concerned About Future Housing: No Difficulty Paying Gas/Electric Bills: No Difficulty Paying for Meds: No Currently Unemployed: No Education: High School Diploma/GED Difficulty w/ Childcare or Family Care: No Living arrangements: with family Occupation/Education: occupation 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
[2023-06-08] VITALS (45 sets, daily range): BP systolic 141–206; BP diastolic 95–127; PULSE 58–94; RESP 11–20; O2SAT 93–100
[2023-06-08] MEDS: ONDANSETRON INJ 4 MG/2 ML VIAL IV PUSH (00:07)
[2023-06-08 00:08] LABS: Troponin I < 0.012 ng/mL (0.000-0.034)
[2023-06-08] MEDS: PANTOPRAZOLE SODIUM IV 40 MG VIAL IV PUSH (00:08)
[2023-06-08] MEDS: TELMISARTAN 40 MG TABLET 80 MG PO (00:09)
[2023-06-08] MEDS: hydroCHLOROthiazide 25 MG TABLET PO (00:09)
[2023-06-08] MEDS: NITROGLYCERIN OINTMENT 1 INCH DOSE TRANSDERM (01:33)
[2023-06-08 02:11] LABS: D Dimer > 20.00 ug/mL (<0.48)
[2023-06-08] MEDS: ESMOLOL HCL 100 MG/10 ML VIAL 45 MG IV PUSH (03:17)
[2023-06-08] MEDS: ESMOLOL HCL 2,500 MG/250 ML 2,500 MG/250 ML BAG 27.21 MG IV CONT (03:18)
--- NOTE | 2023-06-08 03:45 | ECG_ITS ---
Measurements Intervals [place] Rate: 63 P: 30 NC: 175 QRS: 4 QRSD: 112 T: 40 QT: 453 QTc: 464 Interpretive Statements SINUS RHYTHM MODERATE INTRAVENTRICULAR CONDUCTION DELAY [110+ ms QRS DURATION] COMPARED TO ECG 06/07/2023 18:54:01 SINUS RHYTHM NOW PRESENT INTRAVENTRICULAR CONDUCTION DELAY NOW PRESENT Electronically Signed On 06-08-2023 17:04:15 EMPLOYEE RELATIONS MANAGER by Marilee Sneed M.D.
--- NOTE | 2023-06-08 04:01 | PC.NURSE ---
Triage report given to [facility], states they will work on getting him a bed and call back.
--- NOTE | 2023-06-08 04:20 | PC.NURSE ---
Report given to SALOMÓN Tapia at [facility]. Patient is going to room 5602.
[2023-06-08 04:22] LABS: Troponin I < 0.012 ng/mL (0.000-0.034)
[2023-06-08] MEDS: niCARdipine 20 MG/200 ML 20 MG/200 ML BAG 50 MG IV CONT (04:41)
--- NOTE | 2023-06-08 05:32 | PC.NURSE ---
Report given to [facility] for transportation. Verbalizes understanding to stop Cardene if systolic falls below 100.
== END 2023-06-08 05:30 | disposition short-term general hospital (02) ==
PROVIDERS: Emergency Medicine; Emergency Provider Physician Assistant; PCP Family Medicine
DX: I71.010 Dissection of ascending aorta (principal); R00.1 Bradycardia, unspecified; K21.9 Gastro-esophageal reflux disease without esophagitis; I10 Essential (primary) hypertension; E03.9 Hypothyroidism, unspecified
CPT/HCPCS: 36415; 71046; 71275; 74177; 80053; 83690; 84484; 85025; 85380; 85610; 85730; 93005; 96365; 96375; 99291; A9270; C9113; J2405; Q9967

== ENCOUNTER 2024-04-23 01:20 | Day surgery (SDC) | payer BC, SELFPAY ==
[2024-04-23 06:45] VITALS: BP 136/88; PULSE 56; RESP 16; TEMP 36.2; O2SAT 99
[2024-04-23] MEDS: LACTATED RINGERS 1,000 ML 150 ML IV CONT (06:57)
--- NOTE | 2024-04-23 07:08 | P.PNAN_ITS ---
Anes - Initial Pre Proc Eval Procedure: Operation Date: 04/23/24 08:00 Proposed Procedures p Colonoscopy - Ed Jiménez MD Date/Time: 04/23/24 07:08 Surgeon: Ed Jiménez MD Pre Op Diagnosis: personal hx of cancer Patient Data Age: 63 Gender: M Height: 1.78 m Weight: 95 kg Last Vital Signs Temp 36.2 C L 04/23/24 06:45 Pulse 56 L 04/23/24 06:45 Resp 16 04/23/24 06:45 BP 136/88 04/23/24 06:45 Pulse Ox 99 04/23/24 06:45 O2 Del Method Room Air 04/23/24 06:45 Allergies Allergy/AdvReac Type Severity Reaction Status Date / Time Penicillins Allergy Unknown Rash Verified 04/23/24 06:44 Home Medications Medication Instructions Recorded Confirmed Type levothyroxine 50 mcg tablet 50 mcg PO DAILY 02/18/23 04/23/24 History amlodipine 10 mg tablet 10 mg PO DAILY 04/13/24 04/23/24 History carvedilol 25 mg tablet 25 mg PO BID 04/13/24 04/23/24 History clonazepam 0.5 mg tablet 0.5 mg PO BID PRN Anxiety 04/13/24 04/23/24 History hydralazine 25 mg tablet 75 mg PO TID 04/13/24 04/23/24 History rosuvastatin 10 mg tablet 10 mg PO DAILY 04/13/24 04/23/24 History Patient hx anesthesia problems: none Family hx anesthesia problems: none Results Review: All pre-operative results and documents have been reviewed as part of the pre- operative evaluation. [facility] Past Medical History Medical History (Updated 04/23/24 @ 07:09 by Alfonso Ogden DO) Adhesive capsulitis of right shoulder Degenerative arthritis of right shoulder region Dissecting aneurysm of thoracic aorta, [place] type B GERD (gastroesophageal reflux disease) History of colon cancer Hodgkin lymphoma Hypertension Hypothyroid Right shoulder pain Surgical History Surgical History (Updated 05/06/23 @ 11:01 by Pina Delgadillo, MARVIN) History of colon surgery History of hemicolectomy Hand assisted laparoscopic right hemicolectomy with stapled [id number] ileocolic anastomosis on 04/25/23 SAW Hx of neck surgery Family History Family History Father Hypertension Father Hypertension Patient's father is in good health Mother Patient's mother is in good health Sibling Patient's sister is in good health Patient's brother is in good health Other Family history of gout Family history of malignant neoplasm Social History Social History Smoking status: Never smoker Alcohol intake: never Substance use: never Substance use type: does not use Lack of Transportation: No Lack of Food: Never True Current Housing: I Have Housing Concerned About Future Housing: No Difficulty Paying Gas/Electric Bills: No Difficulty Paying for Meds: No Currently Unemployed: No Education: High School Diploma/GED Difficulty w/ Childcare or Family Care: No Living arrangements: with family Occupation/Education: occupation 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 Informed Consent: The patient's anesthetic plan and its attendant risks and benefits were discussed with the patient/family/POA. Questions were solicited and answers provided to the satisfaction of the patient/family/POA.
--- NOTE | 2024-04-23 07:46 | P.HP_ITS ---
History of Present Illness History of Present Illness Consent: Risks, benefits, and alternatives have been discussed and questions answered. Patient agrees to proceed with procedure. 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 Here to reassess Review of Systems Review of Systems: All systems reviewed & are unremarkable except as noted in HPI and below PMFSH Past Medical History Medical History (Updated 04/23/24 @ 07:09 by Alfonso Ogden, DO) Adhesive capsulitis of right shoulder Degenerative arthritis of right shoulder region Dissecting aneurysm of thoracic aorta, [place] type B GERD (gastroesophageal reflux disease) History of colon cancer Hodgkin lymphoma Hypertension Hypothyroid Right shoulder pain Surgical History Surgical History (Updated 05/06/23 @ 11:01 by Pina Delgadillo, MARVIN) History of colon surgery History of hemicolectomy Hand assisted laparoscopic right hemicolectomy with stapled [id number] ileocolic anastomosis on 04/25/23 SAW Hx of neck surgery Family History Family History Father Hypertension Father Hypertension Patient's father is in good health Mother Patient's mother is in good health Sibling Patient's sister is in good health Patient's brother is in good health Other Family history of gout Family history of malignant neoplasm Social History Social History Smoking status: Never smoker Alcohol intake: never Substance use: never Substance use type: does not use Lack of Transportation: No Lack of Food: Never True Current Housing: I Have Housing Concerned About Future Housing: No Difficulty Paying Gas/Electric Bills: No Difficulty Paying for Meds: No Currently Unemployed: No Education: High School Diploma/GED Difficulty w/ Childcare or Family Care: No Living arrangements: with family Occupation/Education: occupation 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 [employer] 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 concerns: No Meds Home Medications and Allergies Home Medications Medication Instructions Recorded Confirmed Type levothyroxine 50 mcg tablet 50 mcg PO DAILY 02/18/23 04/23/24 History amlodipine 10 mg tablet 10 mg PO DAILY 04/13/24 04/23/24 History carvedilol 25 mg tablet 25 mg PO BID 04/13/24 04/23/24 History clonazepam 0.5 mg tablet 0.5 mg PO BID PRN Anxiety 04/13/24 04/23/24 History hydralazine 25 mg tablet 75 mg PO TID 04/13/24 04/23/24 History rosuvastatin 10 mg tablet 10 mg PO DAILY 04/13/24 04/23/24 History Allergies Allergy/AdvReac Type Severity Reaction Status Date / Time Penicillins Allergy Unknown Rash Verified 04/23/24 06:44 Vital Signs Vital Signs - 24 hr 04/23/24 06:45 Temperature 97.2 F L Pulse Rate 56 L Respiratory Rate 16 Blood Pressure 136/88 Pulse Oximetry 99 Oxygen Delivery Room Air Exam Const: General: comfortable and no acute distress HENMT: Face/Nose/Sinus: Normal nares present Eyes: General: appearance normal, both eyes and all related structures Neck: Neck: no JVD Resp: Auscultation: clear to auscultation bilaterally Cardio: Rate: regular rate Rhythm: regular rhythm GI: Inspection: non-distended GI Palp: Yes Soft to palpation Skin: General skin exam: normal color Neuro: General: gait normal Speech: normal speech Extrem: General: normal to inspection Psych: Mental Status: mental status grossly normal Assessment and Plan Assessment and plan (1) History of colon cancer: Code(s): Z85.038 - Personal history of other malignant neoplasm of large intestine Status: Acute Assessment and Plan: colonoscopy (2) Tubular adenoma of colon: Code(s): D12.6 - Benign neoplasm of colon, unspecified Status: Acute
[2024-04-23 08:24] VITALS: BP 74/44; PULSE 53; RESP 11; O2SAT 95
[2024-04-23 08:34] VITALS: BP 101/70; PULSE 52; RESP 20; O2SAT 95
[2024-04-23 08:44] VITALS: BP 108/69; PULSE 55; RESP 19; O2SAT 97
== END 2024-04-23 09:06 | disposition home or self-care (01) ==
PROVIDERS: PCP Family Medicine; Referring Provider Internal Medicine Gastroenterology; Visit Provider Internal Medicine Gastroenterology
PROC: 0DJD8ZZ Inspection of Lower Intestinal Tract, Via Natural or Artificial Opening Endoscopic (ICD-10-PCS; CPT 45378; principal; 2024-04-23 08:00)
DX: Z09 Encounter for follow-up examination after completed treatment for conditions other than malignant neoplasm (principal); D12.2 Benign neoplasm of ascending colon; K63.5 Polyp of colon; K57.30 Diverticulosis of large intestine without perforation or abscess without bleeding; Z85.038 Personal history of other malignant neoplasm of large intestine; Z98.0 Intestinal bypass and anastomosis status; Z90.49 Acquired absence of other specified parts of digestive tract; I10 Essential (primary) hypertension; E03.9 Hypothyroidism, unspecified; I71.019 Dissection of thoracic aorta, unspecified; Z85.71 Personal history of Hodgkin lymphoma; E66.9 Obesity, unspecified; Z68.30 Body mass index [BMI] 30.0-30.9, adult
CPT/HCPCS: 45385; 45390; 88305; J2704; J7120

== ENCOUNTER 2025-04-27 00:08 | Day surgery (SDC) | payer BC, SELFPAY ==
[2025-04-13 15:16] VITALS: BMI 27.3
--- OUTSIDE RECORDS SUMMARY | 2025-04-27 00:12 | XMS_ITS | Patient Health Record ---
Author Organization [facility] alexandra Billing Info Address [address] [place] [address] Support Name Relationship Address Phone Maxmi Schumacher Guarantor Unknown [phone] Reason For Referral No Information Problems Problem Type SNOMED Code ICD Code Onset Dates Problem Status W/U Status Risk Notes Problem [id number] Unspecified essential hypertension (401.9) Active confirmed Migrated-Prob [id number]- [facility] [place]- 2 Plan Of Treatment No Information
[2025-04-27 06:50] VITALS: BP 126/82; PULSE 55; RESP 16; TEMP 36.2; O2SAT 98; BMI 27.6
--- NOTE | 2025-04-27 07:03 | WPDANESEPPF ---
Anes - Initial Pre Proc Eval Procedure: Operation Date: 04/27/25 08:00 Proposed Procedures p Screening Colonoscopy - Ed Jiménez MD Date/Time: 04/27/25 07:03 Surgeon: Ed Jiménez MD Pre Op Diagnosis: Personal history of colon polyps, unspecified Patient Data Age: 64 Gender: M Height: 1.75 m Weight: 84.8 kg Last Vital Signs Temp 36.2 C L 04/27/25 06:50 Pulse 55 L 04/27/25 06:50 Resp 16 04/27/25 06:50 BP 126/82 04/27/25 06:50 Pulse Ox 98 04/27/25 06:50 O2 Del Method Room Air 04/27/25 06:50 Allergies Allergy/AdvReac Type Severity Reaction Status Date / Time Penicillins Allergy Unknown Rash Verified 04/27/25 06:56 Home Medications ?Medication ?Instructions ?Recorded ?Confirmed ?Type levothyroxine 50 mcg tablet 50 mcg PO DAILY 02/18/23 04/27/25 History amlodipine 10 mg tablet 10 mg PO DAILY 04/13/24 04/27/25 History clonazepam 0.5 mg tablet 0.5 mg PO BID PRN Anxiety 04/13/24 04/13/25 History carvedilol 6.25 mg tablet 6.25 mg PO Q12H 04/13/25 04/27/25 History Patient hx anesthesia problems: none Family hx anesthesia problems: none Results Review: All pre-operative results and documents have been reviewed as part of the pre-operative evaluation. [facility] Past Medical History Medical History Dissecting aneurysm of thoracic aorta, [place] type B Hodgkin lymphoma Hypertension Hypothyroid GERD (gastroesophageal reflux disease) History of colon cancer Adhesive capsulitis of right shoulder Degenerative arthritis of right shoulder region Right shoulder pain Surgical History Surgical History History of hemicolectomy Hand assisted laparoscopic right hemicolectomy with stapled [id number]-ig-wote ileocolic anastomosis on 04/25/23 SAW Hx of neck surgery History of colon surgery Family History Family History Father Hypertension Father Hypertension Patient's father is in good health Mother Patient's mother is in good health Sibling Patient's sister is in good health Patient's brother is in good health Other Family history of gout Family history of malignant neoplasm Social History Social History Smoking status: Never smoker Alcohol intake: never Substance use: never Substance use type: does not use Lack of Transportation: No Lack of Food: Never True Current Housing: I Have Housing Concerned About Future Housing: No Difficulty Paying Gas/Electric Bills: No Difficulty Paying for Meds: No Currently Unemployed: No Education: High School Diploma/GED Difficulty w/ Childcare or Family Care: No Living arrangements: with family Occupation/Education: occupation 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 Informed Consent: The patient's anesthetic plan and its attendant risks and benefits were discussed with the patient/family/POA. Questions were solicited and answers provided to the satisfaction of the patient/family/POA.
[2025-04-27] MEDS: LACTATED RINGERS 1,000 ML 150 ML IV CONT ×2 (07:13→09:32)
--- NOTE | 2025-04-27 07:41 | ECG_ITS ---
Test Date: 2025-04-27 07:43:56 Measurements Intervals [place] Rate: 42 P: 47 CO: 191 QRS: 6 QRSD: 106 T: 45 QT: 475 QTc: 400 Interpretive Statements SINUS BRADYCARDIA NONSPECIFIC T-WAVE ABNORMALITY No previous ECG available for comparison Electronically Signed On 04-27-2025 13:17:46 SPECIAL DELIVERY CLERK by Faisal Arteaga M.D.
--- NOTE | 2025-04-27 08:13 | PM.HPGS ---
History of Present Illness History of Present Illness Consent: Risks, benefits, and alternatives have been discussed and questions answered. Patient agrees to proceed with procedure. Chief complaint: Personal history of colon polyps, unspecified Narrative: Maxim Schumacher is a 64 year old male with sigmoid cancer 2012 s/p surgery then 2022 right hemicolectomy with stapled [id number] ileocolic anastomosis due to large TA polyps, last colonoscopy 2023 with large polyp. Review of Systems Review of Systems: All systems reviewed & are unremarkable except as noted in HPI and below PMFSH Past Medical History Medical History Dissecting aneurysm of thoracic aorta, Сергей type B Hodgkin lymphoma Hypertension Hypothyroid GERD (gastroesophageal reflux disease) History of colon cancer Adhesive capsulitis of right shoulder Degenerative arthritis of right shoulder region Right shoulder pain Surgical History Surgical History History of hemicolectomy Hand assisted laparoscopic right hemicolectomy with stapled [id number] ileocolic anastomosis on 04/25/23 SAW Hx of neck surgery History of colon surgery Family History Family History Father Hypertension Father Hypertension Patient's father is in good health Mother Patient's mother is in good health Sibling Patient's sister is in good health Patient's brother is in good health Other Family history of gout Family history of malignant neoplasm Social History Social History Smoking status: Never smoker Alcohol intake: never Substance use: never Substance use type: does not use Lack of Transportation: No Lack of Food: Never True Current Housing: I Have Housing Concerned About Future Housing: No Difficulty Paying Gas/Electric Bills: No Difficulty Paying for Meds: No Currently Unemployed: No Education: High School Diploma/GED Difficulty w/ Childcare or Family Care: No Living arrangements: with family Occupation/Education: occupation 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 [employer] Meds Home Medications and Allergies Home Medications ?Medication ?Instructions ?Recorded ?Confirmed ?Type levothyroxine 50 mcg tablet 50 mcg PO DAILY 02/18/23 04/27/25 History amlodipine 10 mg tablet 10 mg PO DAILY 04/13/24 04/27/25 History clonazepam 0.5 mg tablet 0.5 mg PO BID PRN Anxiety 04/13/24 04/13/25 History carvedilol 6.25 mg tablet 6.25 mg PO Q12H 04/13/25 04/27/25 History Allergies Allergy/AdvReac Type Severity Reaction Status Date / Time Penicillins Allergy Unknown Rash Verified 04/27/25 06:56 Vital Signs Vital Signs - 24 hr 04/27/25 06:50 Temperature 97.1 F L Pulse Rate 55 L Respiratory Rate 16 Blood Pressure 126/82 Pulse Oximetry 98 Oxygen Delivery Room Air Exam Const: General: comfortable and no acute distress HENMT: Face/Nose/Sinus: Normal nares present Eyes: General: appearance normal, both eyes and all related structures Resp: Auscultation: clear to auscultation bilaterally Cardio: Rate: regular rate Rhythm: regular rhythm GI: Inspection: non-distended GI Palp: Yes Soft to palpation Skin: General skin exam: normal color Extrem: General: normal to inspection Psych: Mental Status: mental status grossly normal Assessment and Plan Assessment and plan (1) History of colon cancer: Code(s): Z85.038 - Personal history of other malignant neoplasm of large intestine Status: Acute Assessment and Plan: colonoscopy (2) Tubular adenoma of colon: Code(s): D12.6 - Benign neoplasm of colon, unspecified Status: Acute
[2025-04-27 09:32] VITALS: BP 107/78; PULSE 66; RESP 18; O2SAT 98
[2025-04-27 09:42] VITALS: BP 109/73; PULSE 73; RESP 16; O2SAT 100
--- NOTE | 2025-04-27 09:43 | S_PTH ---
PATIENT: Maxim Schumacher LOC: [facility]#:[id number] AGE/SX: 64/M ROOM: RE04/27/[address]: Ed Jiménez MD : 1960 BED: DIS: 04/27/2025 SPEC #: [id number] RECD: 04/27/25 10:57 STATUS: GRAY RERomana #: [id number] MIGUEL ANGEL: 04/27/25 09:[address]: Ed Jiménez DEPT: [facility] Surgical RECD BY: Heidy Daniel ENTERED: 04/27/25 10:58 SP TYPE: Surgical OTHR DR: Radhames Roca, MBharat Tissues: A - Colon Polypectomy B - Colon Polypectomy C - Colon Polypectomy Procedures: Hematoxylin and Eosin Stain Gross and Microscopic Level 4
[2025-04-27 09:52] VITALS: BP 117/82; PULSE 62; RESP 17; O2SAT 100
--- NOTE | 2025-04-28 07:55 | SUR.PREOP ---
Patients came to the desk around 740 stating that he wasnt feeling very well. His heart rate was in the 30s. Anesthesia was notified and medication was given by MD. Patients heart rate improved and MD cleared him for procedure. EKG was taken and education on heart medications and following up with his reception manager was discussed at length by the anesthesiolgist and the . stated she was going to call the doctor that afternoon and follow up.
== END 2025-04-27 10:18 | disposition home or self-care (01) ==
PROVIDERS: PCP Family Medicine; Referring Provider Internal Medicine Gastroenterology; Visit Provider Internal Medicine Gastroenterology
PROC: 0DJD8ZZ Inspection of Lower Intestinal Tract, Via Natural or Artificial Opening Endoscopic (ICD-10-PCS; CPT 45378; principal; 2025-04-27 08:00)
DX: Z08 Encounter for follow-up examination after completed treatment for malignant neoplasm (principal); D12.3 Benign neoplasm of transverse colon; K63.5 Polyp of colon; K57.30 Diverticulosis of large intestine without perforation or abscess without bleeding; K64.8 Other hemorrhoids; Z98.0 Intestinal bypass and anastomosis status; Z90.49 Acquired absence of other specified parts of digestive tract; Z85.038 Personal history of other malignant neoplasm of large intestine
CPT/HCPCS: 45385; 45381; 82948; 88305; 93005; J2003; J2704; J7120